=== PATIENT | male | born 1950 | race African-American/Black ===

== ENCOUNTER 2018-10-29 01:30 | Inpatient (IN) | payer MEDICARE, MEDICAID ==
[2018-10-29 02:07] LABS: #Basophils 0.1 thou/uL (0.0-0.2); #Eosinphils 0.3 thou/uL (0.0-0.7); #Lymphocytes 2.2 thou/uL (1.20-3.40); #Monocytes 0.5 thou/uL (0.11-0.59); #Neutrophils 6.1 thou/uL (1.40-6.50); %Basophils 1.2 % (0.0-1.0); %Eosinophils 3.5 % (0.0-10.0); %Lymphocytes 23.6 % (21.0-51.0); %Monocytes 5.4 % (0.0-10.0); %Neutrophils 66.3 % (42.0-75.0); Hemoglobin 13.6 g/dL (14.0-18.0); Mean Corpuscular HGB CONC 32.7 g/dL (32.0-36.0); Mean Corpuscular Hemoglobin 31.8 pg (27.0-31.0); Mean Corpuscular Volume 97.4 fL (78.0-98.0); Mean Platelet Volume 7.4 fL (7.4-10.4); Platelet Count 233 thou/uL (130-400); RBC Distribution Width 12.9 % (11.5-14.5); Red Blood Cell (RBC) Count 4.26 mill/uL (4.70-6.10); White Blood Cell (WBC) Count 9.2 thou/uL (4.8-10.8)
[2018-10-29] MEDS ORDERED: Mag-Al 1200 mg/1200 mg/30 ML UDCUP ONE (02:15)
[2018-10-29] MEDS ORDERED: Lidocaine Viscous Sol 2% 15 ml UD Cup ONE (02:15)
[2018-10-29 02:28] LABS: ALT (SGPT) 13 U/L (8-55); AST (SGOT) 15 U/L (5-34); Albumin 3.5 g/dL (3.4-4.8); Alkaline Phosphatase 68 U/L (40-150); Anion Gap 13 mmol/L (10-20); BUN (Urea Nitrogen) 8 mg/dL (8.4-25.7); Bilirubin, Total 0.7 mg/dL (0.2-1.2); CK (CPK) 155 U/L (30-200); Calc. Creatinine Clearance 0 mL/min (70-130); Calcium 8.7 mg/dL (7.8-10.44); Carbon Dioxide 24 mmol/L (23-31); Chloride 106 mmol/L (98-107); Estimated GFR-MDRD Greater than 90; Glucose 103 mg/dL (80-115); Lipase 13 U/L (8-78); Protein, Total 6.5 g/dL (5.8-8.1); Sodium 139 mmol/L (136-145)
[2018-10-29] MEDS ORDERED: Nitroglycerin 2% Ointment 1 INCH/1 GM Packet ONE (02:46)
[2018-10-29 02:49] LABS: CKMB 4.7 ng/mL (0-6.6)
[2018-10-29] MEDS ORDERED: Nitroglycerin 0.4 MG TAB 1 EACH ONE (03:47)
[2018-10-29] MEDS ORDERED: Enoxaparin Sodium 100 MG/ML SYRINGE ONE (03:53)
[2018-10-29] MEDS: Nitroglycerin 0.4 MG TAB (25 Tab Bottle) SL PRN ×3 (04:50→05:08)
[2018-10-29 05:30] LABS: Troponin I 0.267 ng/mL (< 0.028)
[2018-10-29] MEDS ORDERED: Morphine 4 MG/ML VIAL SLOW IVP PRN (05:32)
[2018-10-29 05:59] VITALS: BMI 34.9
--- NOTE | 2018-10-29 08:22 | RAD ---
AP CHEST: History: Chest pain Date: 10-29-18 FINDINGS: AP view chest demonstrates old healed fractures involving the left 7th rib. Old healed right 8th, 9th , and 10th rib fractures also seen. No evidence of acute bony lesions seen. IMPRESSION: 1. Unremarkable acute intrathoracic abnormalities seen. 2. Bilateral healed rib fractures seen. POS: [facility]
[2018-10-29 08:51] LABS: Troponin I 0.343 ng/mL (< 0.028)
[2018-10-29] MEDS ORDERED: Acetaminophen 325 MG TAB PO PRN (08:52)
[2018-10-29] MEDS ORDERED: Ondansetron PF 4 MG/2 ML Vial IVP PRN (08:52)
[2018-10-29] MEDS ORDERED: Ondansetron ODT 4 MG TAB PO PRN (08:52)
[2018-10-29] MEDS ORDERED: Enoxaparin Sodium 40 MG/0.4 ML SYRINGE SC SCH (09:00)
[2018-10-29] MEDS: Losartan/Hydrochlorothiazide 100 mg/25 mg Tablet PO SCH (11:00)
[2018-10-29] MEDS: Aspirin 325 MG TAB PO SCH (11:00)
--- NOTE | 2018-10-29 11:21 | CON ---
DATE OF CONSULTATION: 10/29/2018 REASON FOR CONSULTATION: Non-STEMI. HISTORY OF PRESENT ILLNESS: Mr. Fuller is a very pleasant 67-year-old gentleman, who comes to the hospital for chest pain. He had a sudden onset yesterday of chest tightness and burning, radiated to the left arm. It started about 2 days ago, but it got really bad yesterday, and so EMS was called. He received nitroglycerin en route and was brought in for further evaluation. He states that he had stopped his medications 2 days ago. He currently is chest pain free. His troponins were trended and he is positive now for non-STEMI, so Cardiology is being consulted for this. PAST MEDICAL HISTORY: 1. Hypertension. 2. Hyperlipidemia. PAST SURGICAL HISTORY: None. SOCIAL HISTORY: Smokes about a third of a pack a day. Drinks 6-pack a week and probably a little more on the weekends. No drug use. FAMILY HISTORY: No early coronary artery disease. OUTPATIENT MEDICATIONS: Include: 1. Losartan/hydrochlorothiazide 100/12.5 mg a day. 2. Lovastatin 10 mg a day. 3. Meloxicam 15 mg daily p.r.n. pain. ALLERGIES: NO KNOWN DRUG ALLERGIES. REVIEW OF SYSTEMS: A 12-point review of systems was done and it was all negative unless stated in the history of present illness. PHYSICAL EXAMINATION: VITAL SIGNS: Temperature 98.5, pulse 77, respiratory rate 18, saturation 97% on room air, and blood pressure 127/77. GENERAL: Awake, alert, and oriented x3, in no distress. HEENT: Normocephalic and atraumatic. NECK: Supple. LUNGS: Clear. CARDIOVASCULAR: S1 and S2. No S3 or S4. No murmurs. ABDOMEN: Soft. Positive bowel sounds. EXTREMITIES: No edema. SKIN: Warm and dry. LABORATORY DATA: Laboratory work was reviewed. CBC with white count of 9.2, hemoglobin of 13.6, hematocrit 41, platelet count of 233. Chemistries were unremarkable. GFR is greater than 90. Troponin was 0.23, 0.26, and then 0.34 positive range. CK-MB was 4.7, albumin was 3.5. IMAGING STUDIES: 1. EKG was reviewed. No nonspecific changes. 2. Chest x-ray unremarkable with bilateral healed rib fractures. ASSESSMENT AND PLAN: 1. [id number] myocardial infarction. 2. Hypertension. 3. Tobacco use. PLAN: We will plan on further risk stratification with heart catheterization. We spoke at length with risks and benefits of the procedure. Risks including, but not limited to stroke, [place], , bleeding, need for blood transfusion, limb loss, organ loss. The patient understands and verbalized understanding of this and agrees to proceed. We spoke about bare-metal stenting versus drug-eluting stenting and the need for anticoagulation given his alcohol use. I think bare-metal stenting is probably the best way to go. Further recommendations per results of coronary angiogram. Job ID: [id number]
[2018-10-29] MEDS ORDERED: Fentanyl 100 MCG/2 ML VIAL ONE (12:46)
[2018-10-29] MEDS ORDERED: Midazolam HCl 2 mg/2 ml Vial ONE (12:46)
[2018-10-29] MEDS ORDERED: Iopamidol 370 76% 50 ML VIAL FS ONE (15:07)
[2018-10-29] MEDS ORDERED: Iopamidol 370 76% 100 ML VIAL ONE (15:07)
[2018-10-29] MEDS: Carvedilol 3.125 MG TAB PO SCH (16:02)
[2018-10-29] MEDS ORDERED: Non-Formulary Item 1 EACH (Lovastatin 20 MG) PO SCH (17:00)
[2018-10-29] MEDS ORDERED: Simvastatin 5 MG TAB PO SCH (21:00)
[2018-10-29] MEDS: Enoxaparin Sodium 100 MG/ML SYRINGE SC SCH (21:36)
--- NOTE | 2018-10-30 03:08 | HP ---
CHIEF COMPLAINT: Chest pain. HISTORY OF PRESENT ILLNESS: This is a 67-year-old gentleman with past medical history significant for hypertension, many years of tobacco usage and alcohol, who presented here with left-sided chest pain described as an elephant sitting on the chest, 10/10 in terms of severity, associated with subjective feeling of shortness of breath. No diaphoresis and no palpitation. No known relieving or aggravating factors. The patient presented here and noted with slight elevation in troponin. Decision has now been taken to admit this patient for further workup. PAST MEDICAL HISTORY: Significant for hypertension, BPH, many years of tobacco abuse, dyslipidemia, and alcohol consumption. SOCIAL HISTORY: One pack a day for many years and significant alcohol usage. No illicit drugs. FAMILY HISTORY: No family history of cardiac disease. MEDICATIONS: Reviewed and as documented on [employer]. ALLERGIES: NO KNOWN DRUG ALLERGIES. REVIEW OF SYSTEMS: As documented in the body of history. All other systems were reviewed and found not to be significantly related to the present illness. PHYSICAL EXAMINATION: GENERAL: The patient was found not to be in any obvious distress. VITAL SIGNS: Noted with the following vital signs; afebrile, temperature 98.5, pulse 81, respiratory rate of 19, O2 saturations 96% with blood pressure 164/81. HEENT: Unremarkable. Moist oral mucosa. NECK: Supple. No conjunctival injection or icterus. CARDIOVASCULAR SYSTEM: First and second heart sounds were heard. RESPIRATORY SYSTEM: Clear to auscultation. DIGESTIVE SYSTEM: Revealed a benign abdomen with positive bowel sounds. EXTREMITIES: No peripheral edema. SKIN: No new gross rash. LYMPHATICS: No peripheral lymphadenopathy. IMPRESSION: 1. Chest pain, likely non-ST elevation myocardial infarction. 2. Hypertension. 3. Dyslipidemia. 4. Tobacco abuse and alcohol abuse. PLAN: 1. Cardiology consultation. 2. Counseled on the need to discontinue tobacco abuse and also alcohol. 3. The patient is to remain n.p.o. pending cardiology evaluation as this story sounds very typical of non-ST elevation [place]. 4. Further management will be dependent on the clinical course as well as further recommendations from Cardiology Service. The code status is full. Job ID: [id number]
[2018-10-30 06:52] LABS: Cardiac Risk 6.6 (Less than 4.5)
[2018-10-30] MEDS ORDERED: Bisacodyl 5 MG TAB PO PRN (08:09)
[2018-10-30] MEDS ORDERED: Diabetic Tussin 200 MG/10 ML UDCUP PO PRN (08:09)
[2018-10-30] MEDS ORDERED: Sodium Chloride 0.65% Nasal 44 ML BOT EA NARE PRN (08:09)
[2018-10-30] MEDS ORDERED: Senokot S 8.6-50 MG TAB PO PRN (08:09)
[2018-10-30] MEDS ORDERED: Eucerin (Mineral Oil/Petrolatum,White) 30 gm Jar TOP PRN (08:09)
[2018-10-30] MEDS ORDERED: Artificial Tears 18 DROP/0.9 ML EA EYE PRN (08:09)
[2018-10-30] MEDS ORDERED: Loperamide HCl 2 MG CAP PO PRN (08:09)
[2018-10-30] MEDS ORDERED: Cepastat Lozenges 1 LOZ PO PRN (08:09)
[2018-10-30] MEDS ORDERED: HYDROcodone/Acetaminophen 5/325 mg Tablet PO PRN (08:09)
[2018-10-30] MEDS ORDERED: hydrALAZINE 20 MG/ML VIAL SLOW IVP PRN (08:09)
[2018-10-30] MEDS ORDERED: Loratadine 10 MG TAB PO PRN (08:09)
[2018-10-30] MEDS ORDERED: Zolpidem Tartrate 5 MG TAB PO PRN (08:09)
--- NOTE | 2018-10-30 10:43 | PDOC.PN ---
- Subjective Encounter Start Date: 10/30/18 Encounter Start Time: 08:15 -: old records requested/rev Patient seen and examined. No new complaints. No overnight events today he has no chest pain - Objective Resuscitation Status - Order Detail: 10/29/18 08:52 Resuscitation Status Routine Resuscitation Status: FULL: Full Resuscitation MAR Reviewed: Yes Vital Signs & Weight: Vital Signs (12 hours) Temp Pulse Resp BP Pulse Ox 10/30/18 08:00 99.4 F 76 18 162/90 H 97 10/30/18 04:01 98 F 96 18 134/94 H 95 10/30/18 00:40 98.1 F 74 18 166/96 H 96 10/30/18 00:00 98.3 F 74 19 159/99 H 98 Weight Weight 236 lb 4.8 oz I&O: 10/29/18 10/30/18 10/31/18 06:59 06:59 06:59 Intake Total 200 807 Output Total 200 1750 Balance 0 -943 Result Diagrams: 10/29/18 02:00 10/29/18 02:00 Radiology Reviewed by me: Yes (chest xray reviewed) EKG Reviewed by me: Yes (nsr) Phys Exam - Physical Examination Constitutional: NAD HEENT: PERRLA, moist MMs, sclera anicteric Neck: no JVD, supple Respiratory: no wheezing, no rales, no rhonchi Cardiovascular: RRR, no significant murmur, no rub Gastrointestinal: soft, non-tender, no distention, positive bowel sounds Musculoskeletal: no edema, pulses present Neurological: non-focal, normal sensation, moves all 4 limbs Lymphatic: no nodes Psychiatric: normal affect, A&O x 3 Skin: no rash, normal turgor Dx/Plan (1) NSTEMI (non-ST elevated myocardial infarction) Code(s): I21.4 - NON-ST ELEVATION (NSTEMI) MYOCARDIAL INFARCTION Status: Acute (2) 3-vessel coronary artery disease Status: Acute (3) Dyslipidemia Code(s): E78.5 - HYPERLIPIDEMIA, UNSPECIFIED Status: Chronic (4) Hypertension Code(s): I10 - ESSENTIAL (PRIMARY) HYPERTENSION Status: Chronic (5) Obesity (BMI 30.0-34.9) Code(s): E66.9 - OBESITY, UNSPECIFIED Status: Chronic - Plan cont current plan of care * will change to lipitor 80 mg po daily * cardiology to decide about medical therapy vs cabg * medication reviewed as below * symptomatic treatment * continue cardiac rehab. * increase dose of coreg Review of Systems - Review of Systems ENT: negative: Ear Pain, Ear Discharge, Nose Pain, Nose Discharge, Nose Congestion, Mouth Pain, Mouth Swelling, Throat Pain, Throat Swelling, Other Respiratory: negative: Cough, Dry, Shortness of Breath, Hemoptysis, SOB with Excertion, Pleuritic Pain, Sputum, Wheezing Cardiovascular: negative: chest pain, palpitations, orthopnea, paroxysmal nocturnal dyspnea, edema, light headedness, other Gastrointestinal: negative: Nausea, Vomiting, Abdominal Pain, Diarrhea, Constipation, Melena, Hematochezia, Other Genitourinary: negative: Dysuria, Frequency, Incontinence, Hematuria, Retention , Other Musculoskeletal: negative: Neck Pain, Shoulder Pain, Arm Pain, Back Pain, Hand Pain, Leg Pain, Foot Pain, Other Skin: negative: Rash, Lesions, [place], Bruising, Other - Medications/Allergies Allergies/Adverse Reactions: Allergies Allergy/AdvReac Type Severity Reaction Status Date / Time No Known Allergies Allergy Verified 10/29/18 06:12 Medications: Current Medications Acetaminophen (Tylenol) 650 mg PO Q4H PRN PRN Reason: Headache/Fever/Mild Pain (1-3) Hydrocodone Bitart/Acetaminophen ([place] 5/325) 1 tab PO Q4H PRN PRN Reason: Moderate Pain (4-6) Artificial Tears (Tears Naturale) 2 drop EA EYE PRN PRN PRN Reason: Dry Eyes Aspirin (Aspirin) 325 mg PO DAILY [facility] Last Admin: 10/29/18 11:00 Dose: 325 mg Atorvastatin Calcium (Lipitor) 80 mg PO HS [facility] Bisacodyl (Dulcolax) 10 mg PO DAILYPRN PRN PRN Reason: Constipation Carvedilol (Coreg) 3.125 mg PO BID-WM [facility] Last Admin: 10/29/18 16:02 Dose: 3.125 mg Enoxaparin Sodium (Lovenox) 100 mg SC 0900,2100 [facility] Last Admin: 10/29/18 21:36 Dose: 100 mg Guaifenesin (Robitussin Sf) 200 mg PO Q4H PRN PRN Reason: Cough HCTZ/Losartan Potassium (Hyzaar 100/25) 1 tab PO DAILY [facility] Last Admin: 10/29/18 11:00 Dose: Not Given Hydralazine HCl (Apresoline) 10 mg SLOW IVP Q4H PRN PRN Reason: SBP > 180 and HR < 70 Loperamide HCl (Imodium) 2 mg PO PRN PRN PRN Reason: Diarrhea/Loose Stools Loratadine (Claritin) 10 mg PO DAILYPRN PRN PRN Reason: Sinus Symptoms Mineral Oil/White Petrolatum (Eucerin Cream) 0 gm TOP BIDPRN PRN PRN Reason: Dry Skin Nitroglycerin (Nitrostat) 0.4 mg SL Q5MIN PRN PRN Reason: Chest Pain Last Admin: 10/29/18 05:08 Dose: 0.4 mg Ondansetron HCl (Zofran Odt) 4 mg PO Q6H PRN PRN Reason: Nausea/Vomiting Ondansetron HCl (Zofran) 4 mg IVP Q6H PRN PRN Reason: Nausea/Vomiting Senna/Docusate Sodium (Senokot S) 2 tab PO BID PRN PRN Reason: Constipation Sodium Chloride (Flush - Normal Saline) 10 ml IVF Q12HR [facility] Last Admin: 10/29/18 21:37 Dose: 10 ml Sodium Chloride (Flush - Normal Saline) 10 ml IVF PRN PRN PRN Reason: Saline Flush Sodium Chloride ([place] Nasal [place] 0.65%) 0 ml EA NARE QIDPRN PRN PRN Reason: Nasal Congestion Throat Lozenges (Cepastat Lozenges) 1 raiza PO Q2H PRN PRN Reason: Sore Throat Zolpidem Tartrate (Ambien) 5 mg PO HSPRN PRN PRN Reason: Insomnia
[2018-10-30] MEDS: Enoxaparin Sodium 100 MG/ML SYRINGE SC SCH ×2 (11:02→20:58)
[2018-10-30] MEDS: Aspirin 325 MG TAB PO SCH (11:02)
[2018-10-30] MEDS: Carvedilol 3.125 MG TAB PO SCH (11:02)
--- NOTE | 2018-10-30 13:02 | PDOC.CTH ---
Cardiology Progress Note - Subjective No new issues. No chest pain. - Objective Vital Signs Temp Pulse Resp BP Pulse Ox 10/30/18 08:00 99.4 F 76 18 162/90 H 97 10/30/18 04:01 98 F 96 18 134/94 H 95 Weight 236 lb 4.8 oz 10/29/18 10/30/18 10/31/18 06:59 06:59 06:59 Intake Total 200 807 Output Total 200 1750 Balance 0 -943 - Physical Examination General/Neuro: alert & oriented x3, NAD Neck: no JVD present Lungs: unlabored respirations Heart: RRR Abdomen: NT/ND Extremities: + edema B - Telemetry Telemetry Rhythm: NSR - Labs Result Diagrams: 10/29/18 02:00 10/29/18 02:00 Troponin/CKMB CK-MB (CK-2) 4.7 ng/mL (0-6.6) 10/29/18 02:00 Troponin I 0.343 ng/mL (< 0.028) H* 10/29/18 08:14 - Assessment/Plan 1. NSTEMI 2. Multivessel CAD PLAN: - Discussed case with several of my partners and we all agree that CABG would be the best way to revascularize. - Will consult CT surgery.
[2018-10-30] MEDS: Losartan/Hydrochlorothiazide 100 mg/25 mg Tablet PO SCH (13:12)
[2018-10-30] MEDS: Carvedilol 6.25 MG TAB PO SCH (17:57)
[2018-10-30] MEDS: Atorvastatin Calcium 40 MG TAB PO SCH (20:58)
--- NOTE | 2018-10-31 00:13 | CON ---
DATE OF CONSULTATION: 10/30/2018 REQUESTING PHYSICIAN: Dr. Freire. PRIMARY CARE PHYSICIAN: Dr. Mike Jade. CHIEF COMPLAINT: Chest heaviness. HISTORY OF PRESENT ILLNESS: The patient is a 67-year-old man who will turn 68 shortly. He is a rather difficult historian who tends to ramble incomplete somethings. It is a bit of a challenge to keep him on point. For at least a day or two or three prior to his admission in the manufacturing executive hours yesterday, he had been having left-sided chest pain that he described as feeling like an animal sitting on his chest. It was going into his left arm. It was very difficult for me to get a clear picture of what finally prompted him to seek medical attention or to shake him from his version of the story that this has been going on for about a week nonstop. Other examiners apparently got a picture of this going on for just a few days. His initial troponin here was mildly elevated at 0.231. He is now pain free and has had uncomplicated post infarction course. PAST MEDICAL HISTORY: Significant for a prostate cancer, hypertension, and arthritis primarily involving his right knee. He describes initiating the process to be treated for his prostate cancer about 4 years ago, but poorly-controlled hypertension put that on hold and that has not been addressed since. 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 He describes smoking about a pack of cigarettes every 3 days and drinking about a case of beer a week. To the best of his knowledge, . no first degree relatives have any sort of heart problems. MEDICATIONS: His home medications are Mobic, lovastatin, and losartan/hydrochlorothiazide. He is currently on Lipitor 80 mg at bedtime in lieu of the lovastatin 20 mg, Coreg 12.5 mg b.i.d. has been added to his losartan 100 and hydrochlorothiazide 25 a day. An adult aspirin a day has been added and he is currently on 100 mg q.12 hours of subcu Lovenox. ALLERGIES: HE DENIES ANY MEDICAL ALLERGIES. REVIEW OF SYSTEMS: Positive for right knee arthritic symptoms. He denies any shortness of breath or cough. He denies any eye, speech, facial, or extremity symptoms to suggest TIAs. PHYSICAL EXAMINATION: GENERAL: He has white hair and duval, making him look older than perhaps his stated age. VITAL SIGNS: His height is 5 feet 10 inches, weight is 243.5 pounds. Heart rate is 80, blood pressure is 144/72, temperature is 97.5, room air O2 sats 96%. HEENT: He has no xanthelasma. No JVD. No carotid bruits. CHEST: Clear to auscultation. CARDIAC: He has a regular rate and rhythm without obvious murmur or gallop. When I asked him blow out hard against my hand, he seemed to have some slightly decreased force of exhalation. EXTREMITIES: He has easily palpable radial pulses. His posterior tibials were palpable. I was not able to appreciate dorsalis pedis pulses. His right knee seems a little bit larger than his left. It is difficult to appreciate saphenous vein in his leg. NEUROLOGIC: Grossly nonfocal. LABORATORY DATA: Showed white count 9.2, hemoglobin 13.6, hematocrit 41.5, platelets 233,000. Electrolytes were normal. Glucose 103, BUN 8, creatinine 0.85, calcium is 8.7, albumin 6.5. LFTs were normal. Triglycerides 137, cholesterol 211, HDL 152, and HDL 32. His troponin at 2 o'clock yesterday morning was 0.231, at quarter to five was 0.267, at 8:15 it was 0.343. His EKG has a rather deep Q in 3 and R-waves in V5 and V6 are smaller than they are another precordial leads. Otherwise, it is fairly unremarkable EKG. His chest x-ray shows a slightly ectatic aorta with fairly clear lung chacon and no overt cardiomegaly. His cardiac catheterization shows a right-dominant system. He has about a 40% mid right lesion and then a 60% to 70% right coronary lesion just beyond the acute marginal. His left main is normal. He has either a high diagonal or ramus type vessel with a 60% to 80% lesion in it, but a 60% to 70% LAD lesion just beyond the first septal refrigeration installer. He has some luminal irregularity with what appears to be about 50% or 60% lesion in an OM2 that is a very large vessel. The groove circumflex has a high-grade lesion in it, but it is a small vessel and bypassable obtuse marginals emerged from the groove beyond that large first one. LVEF by my estimation is around 40, perhaps as much as 50% inferoapical area of hypokinesis. Dr. Freire estimated the EF to be about 60%. LV pressures were 163/10 with an EDP of 26 and 178/9 with an EDP of 25. Aortic pressure on pullback from the 178/9 reading was 165/88 with a mean of 119. IMPRESSION AND PLAN: Three-vessel coronary artery disease with recent myocardial infarction. I think surgical revascularization is a reasonable approach can be done with low risk. The patient was essentially aghast at my offer of doing bypass surgery tomorrow when he began trying to explain various things about coordinating plans to get his surgery scheduled at first. It sounded like it was a combination of the shock of being told about the surgery and the possibility of doing it on such short notice and desire to not be in the hospital on his birthday. We talked about various issues about postop recovery and help that he is apt to need during his convalescence and I could not really get a clear picture of when he would like to do this, other than, it is clear he does not want to do it in the morning. Job ID: [id number]
[2018-10-31] MEDS: Carvedilol 6.25 MG TAB PO SCH ×2 (08:27→18:12)
[2018-10-31] MEDS: Losartan/Hydrochlorothiazide 100 mg/25 mg Tablet PO SCH (08:28)
[2018-10-31] MEDS: Enoxaparin Sodium 100 MG/ML SYRINGE SC SCH ×2 (08:30→21:02)
[2018-10-31] MEDS: Aspirin 325 MG TAB PO SCH (08:30)
--- NOTE | 2018-10-31 12:38 | PDOC.PN ---
- Subjective Encounter Start Date: 10/31/18 Encounter Start Time: 09:30 Patient seen and examined. No new complaints. No overnight events - Objective Resuscitation Status - Order Detail: 10/29/18 08:52 Resuscitation Status Routine Resuscitation Status: FULL: Full Resuscitation MAR Reviewed: Yes Vital Signs & Weight: Vital Signs (12 hours) Temp Pulse Resp BP BP Pulse Ox 10/31/18 08:27 143/87 H 10/31/18 07:23 97.5 F L 77 18 142/78 H 97 10/31/18 03:12 98.2 F 85 16 134/75 96 Weight Weight 234 lb I&O: 10/30/18 10/31/18 11/01/18 06:59 06:59 06:59 Intake Total 807 1230 240 Output Total 1750 400 Balance -943 830 240 Result Diagrams: 10/29/18 02:00 10/29/18 02:00 EKG Reviewed by me: Yes (nsr) Phys Exam - Physical Examination Constitutional: NAD HEENT: PERRLA, moist MMs, sclera anicteric Neck: no JVD, supple Respiratory: no wheezing, no rales, no rhonchi Cardiovascular: RRR, no significant murmur, no rub Gastrointestinal: soft, non-tender, no distention, positive bowel sounds Musculoskeletal: no edema, pulses present Neurological: non-focal, normal sensation, moves all 4 limbs Lymphatic: no nodes Psychiatric: normal affect, A&O x 3 Skin: no rash, normal turgor Dx/Plan (1) NSTEMI (non-ST elevated myocardial infarction) Code(s): I21.4 - NON-ST ELEVATION (NSTEMI) MYOCARDIAL INFARCTION Status: Acute (2) 3-vessel coronary artery disease Status: Acute (3) Dyslipidemia Code(s): E78.5 - HYPERLIPIDEMIA, UNSPECIFIED Status: Chronic (4) Hypertension Code(s): I10 - ESSENTIAL (PRIMARY) HYPERTENSION Status: Chronic (5) Obesity (BMI 30.0-34.9) Code(s): E66.9 - OBESITY, UNSPECIFIED Status: Chronic - Plan cont current plan of care * medication reviewed as below * symptomatic treatment * pt has decided about cabg * overall stable * will monitor. Review of Systems - Review of Systems ENT: negative: Ear Pain, Ear Discharge, Nose Pain, Nose Discharge, Nose Congestion, Mouth Pain, Mouth Swelling, Throat Pain, Throat Swelling, Other Respiratory: negative: Cough, Dry, Shortness of Breath, Hemoptysis, SOB with Excertion, Pleuritic Pain, Sputum, Wheezing Cardiovascular: negative: chest pain, palpitations, orthopnea, paroxysmal nocturnal dyspnea, edema, light headedness, other Gastrointestinal: negative: Nausea, Vomiting, Abdominal Pain, Diarrhea, Constipation, Melena, Hematochezia, Other Genitourinary: negative: Dysuria, Frequency, Incontinence, Hematuria, Retention , Other Musculoskeletal: negative: Neck Pain, Shoulder Pain, Arm Pain, Back Pain, Hand Pain, Leg Pain, Foot Pain, Other - Medications/Allergies Allergies/Adverse Reactions: Allergies Allergy/AdvReac Type Severity Reaction Status Date / Time No Known Allergies Allergy Verified 10/29/18 06:12 Medications: Current Medications Acetaminophen (Tylenol) 650 mg PO Q4H PRN PRN Reason: Headache/Fever/Mild Pain (1-3) Hydrocodone Bitart/Acetaminophen ([place] 5/325) 1 tab PO Q4H PRN PRN Reason: Moderate Pain (4-6) Artificial Tears (Tears Naturale) 2 drop EA EYE PRN PRN PRN Reason: Dry Eyes Aspirin (Aspirin) 325 mg PO DAILY [facility] Last Admin: 10/31/18 08:30 Dose: 325 mg Atorvastatin Calcium (Lipitor) 80 mg PO HS [facility] Last Admin: 10/30/18 20:58 Dose: 80 mg Bisacodyl (Dulcolax) 10 mg PO DAILYPRN PRN PRN Reason: Constipation Carvedilol (Coreg) 12.5 mg PO BID-WM [facility] Last Admin: 10/31/18 08:27 Dose: 12.5 mg Enoxaparin Sodium (Lovenox) 100 mg SC 0900,2100 [facility] Last Admin: 10/31/18 08:30 Dose: 100 mg Guaifenesin (Robitussin Sf) 200 mg PO Q4H PRN PRN Reason: Cough HCTZ/Losartan Potassium (Hyzaar 100/25) 1 tab PO DAILY [facility] Last Admin: 10/31/18 08:28 Dose: 1 tab Hydralazine HCl (Apresoline) 10 mg SLOW IVP Q4H PRN PRN Reason: SBP > 180 and HR < 70 Loperamide HCl (Imodium) 2 mg PO PRN PRN PRN Reason: Diarrhea/Loose Stools Loratadine (Claritin) 10 mg PO DAILYPRN PRN PRN Reason: Sinus Symptoms Mineral Oil/White Petrolatum (Eucerin Cream) 0 gm TOP BIDPRN PRN PRN Reason: Dry Skin Nitroglycerin (Nitrostat) 0.4 mg SL Q5MIN PRN PRN Reason: Chest Pain Last Admin: 10/29/18 05:08 Dose: 0.4 mg Ondansetron HCl (Zofran Odt) 4 mg PO Q6H PRN PRN Reason: Nausea/Vomiting Ondansetron HCl (Zofran) 4 mg IVP Q6H PRN PRN Reason: Nausea/Vomiting Senna/Docusate Sodium (Senokot S) 2 tab PO BID PRN PRN Reason: Constipation Sodium Chloride (Flush - Normal Saline) 10 ml IVF Q12HR [facility] Last Admin: 10/31/18 08:33 Dose: 10 ml Sodium Chloride (Flush - Normal Saline) 10 ml IVF PRN PRN PRN Reason: Saline Flush Sodium Chloride ([place] Nasal [place] 0.65%) 0 ml EA NARE QIDPRN PRN PRN Reason: Nasal Congestion Throat Lozenges (Cepastat Lozenges) 1 raiza PO Q2H PRN PRN Reason: Sore Throat Zolpidem Tartrate (Ambien) 5 mg PO HSPRN PRN PRN Reason: Insomnia
--- NOTE | 2018-10-31 18:00 | PDOC.CTH ---
Cardiology Progress Note - Subjective He has thought about CABG and has decided to proceed. No chest pain. - Objective Vital Signs Temp Pulse Resp BP BP Pulse Ox 10/31/18 12:58 97.8 F 77 135/80 97 10/31/18 08:27 143/87 H 10/31/18 07:23 97.5 F L 77 18 142/78 H 97 Weight 234 lb 10/30/18 10/31/18 11/01/18 06:59 06:59 06:59 Intake Total 807 1230 240 Output Total 1750 400 Balance -943 830 240 - Physical Examination General/Neuro: alert & oriented x3, NAD Neck: no JVD present Lungs: CTA, unlabored respirations Heart: RRR Abdomen: NT/ND Extremities: other: (no edema.) - Telemetry Telemetry Rhythm: NSR - Labs Result Diagrams: 10/29/18 02:00 10/29/18 02:00 Troponin/CKMB CK-MB (CK-2) 4.7 ng/mL (0-6.6) 10/29/18 02:00 Troponin I 0.343 ng/mL (< 0.028) H* 10/29/18 08:14 - Assessment/Plan 1. NSTEMI 2. Multivessel CAD PLAN: - CABG tomorrow. - Will follow.
[2018-10-31] MEDS: Atorvastatin Calcium 40 MG TAB PO SCH (21:02)
[2018-10-31] MEDS ORDERED: Famotidine 20 MG TAB PO SCH (22:00)
[2018-10-31 22:04] LABS: ALT (SGPT) 15 U/L (8-55); AST (SGOT) 14 U/L (5-34); Albumin 4.2 g/dL (3.4-4.8); Alkaline Phosphatase 69 U/L (40-150); Anion Gap 10 mmol/L (10-20); BUN (Urea Nitrogen) 12 mg/dL (8.4-25.7); Bilirubin, Total 0.6 mg/dL (0.2-1.2); Calc. Creatinine Clearance 105 mL/min (70-130); Calcium 10.1 mg/dL (7.8-10.44); Carbon Dioxide 31 mmol/L (23-31); Chloride 99 mmol/L (98-107); Estimated GFR-MDRD 86; Globulin 3.5 g/dL (2.4-3.5); Glucose 103 mg/dL (80-115); Magnesium 2.1 mg/dL (1.6-2.6); Potassium 3.9 mmol/L (3.5-5.1); Protein, Total 7.7 g/dL (5.8-8.1); Sodium 136 mmol/L (136-145)
--- NOTE | 2018-11-01 08:28 | PDOC.CTH ---
Cardiology Progress Note - Subjective No chest pain, no new issues. - Objective Vital Signs Temp Pulse Resp BP Pulse Ox 11/01/18 05:55 97.7 F 73 18 121/71 100 10/31/18 21:02 95 10/31/18 20:54 97.6 F 77 18 111/77 95 Weight 232 lb 6.4 oz 10/31/18 11/01/18 11/02/18 06:59 06:59 06:59 Intake Total 1230 1180 Output Total 400 575 Balance 830 605 - Physical Examination General/Neuro: alert & oriented x3, NAD Neck: no JVD present Lungs: CTA, unlabored respirations Heart: RRR Abdomen: NT/ND Extremities: other: (no edema) - Telemetry Telemetry Rhythm: NSR - Labs Result Diagrams: 10/29/18 02:00 10/31/18 21:37 Troponin/CKMB CK-MB (CK-2) 4.7 ng/mL (0-6.6) 10/29/18 02:00 Troponin I 0.343 ng/mL (< 0.028) H* 10/29/18 08:14 - Assessment/Plan 1. NSTEMI 2. Multivessel CAD 3. HTN PLAN: - CABG when scheduled. - Continue medical therapy.
[2018-11-01] MEDS ORDERED: Famotidine 20 MG TAB PO SCH (09:00)
[2018-11-01] MEDS: Carvedilol 6.25 MG TAB PO SCH (10:22)
[2018-11-01] MEDS: Enoxaparin Sodium 100 MG/ML SYRINGE SC SCH (10:22)
[2018-11-01] MEDS: Aspirin 325 MG TAB PO SCH (10:23)
[2018-11-01] MEDS: Losartan/Hydrochlorothiazide 100 mg/25 mg Tablet PO SCH (11:10)
--- NOTE | 2018-11-01 12:09 | PDOC.PN ---
- Subjective Encounter Start Date: 11/01/18 Encounter Start Time: 08:00 Patient seen and examined. No new complaints. No overnight events - Objective Resuscitation Status - Order Detail: 10/29/18 08:52 Resuscitation Status Routine Resuscitation Status: FULL: Full Resuscitation MAR Reviewed: Yes Vital Signs & Weight: Vital Signs (12 hours) Temp Pulse Resp BP BP BP Pulse Ox 11/01/18 10:22 143/87 H 11/01/18 08:00 97.7 F 83 18 126/79 100 11/01/18 05:55 97.7 F 73 18 121/71 100 Weight Weight 232 lb 6.4 oz I&O: 10/31/18 11/01/18 11/02/18 06:59 06:59 06:59 Intake Total 1230 1180 Output Total 400 575 Balance 830 605 Result Diagrams: 10/29/18 02:00 10/31/18 21:37 EKG Reviewed by me: Yes (nsr) Phys Exam - Physical Examination Constitutional: NAD HEENT: PERRLA, moist MMs, sclera anicteric Neck: no JVD, supple Respiratory: no wheezing, no rales, no rhonchi Cardiovascular: RRR, no significant murmur, no rub Gastrointestinal: soft, non-tender, no distention, positive bowel sounds Musculoskeletal: no edema, pulses present Neurological: non-focal, normal sensation Psychiatric: normal affect, A&O x 3 Skin: no rash, normal turgor Dx/Plan (1) NSTEMI (non-ST elevated myocardial infarction) Code(s): I21.4 - NON-ST ELEVATION (NSTEMI) MYOCARDIAL INFARCTION Status: Acute (2) 3-vessel coronary artery disease Status: Acute (3) Dyslipidemia Code(s): E78.5 - HYPERLIPIDEMIA, UNSPECIFIED Status: Chronic (4) Hypertension Code(s): I10 - ESSENTIAL (PRIMARY) HYPERTENSION Status: Chronic (5) Obesity (BMI 30.0-34.9) Code(s): E66.9 - OBESITY, UNSPECIFIED Status: Chronic - Plan cont current plan of care * cabg outpt * ok to dc as per cv surgery and cardiology * see discharge summery * medication reviewed as below * symptomatic treatment. Review of Systems - Review of Systems ENT: negative: Ear Pain, Ear Discharge, Nose Pain, Nose Discharge, Nose Congestion, Mouth Pain, Mouth Swelling, Throat Pain, Throat Swelling, Other Respiratory: negative: Cough, Dry, Shortness of Breath, Hemoptysis, SOB with Excertion, Pleuritic Pain, Sputum, Wheezing Cardiovascular: negative: chest pain, palpitations, orthopnea, paroxysmal nocturnal dyspnea, edema, light headedness, other Gastrointestinal: negative: Nausea, Vomiting, Abdominal Pain, Diarrhea, Constipation, Melena, Hematochezia, Other Genitourinary: negative: Dysuria, Frequency, Incontinence, Hematuria, Retention , Other Musculoskeletal: negative: Neck Pain, Shoulder Pain, Arm Pain, Back Pain, Hand Pain, Leg Pain, Foot Pain, Other Skin: negative: Rash, Lesions, Tanmay, Bruising, Other - Medications/Allergies Allergies/Adverse Reactions: Allergies Allergy/AdvReac Type Severity Reaction Status Date / Time No Known Allergies Allergy Verified 10/29/18 06:12 Medications: Current Medications Acetaminophen (Tylenol) 650 mg PO Q4H PRN PRN Reason: Headache/Fever/Mild Pain (1-3) Hydrocodone Bitart/Acetaminophen ([place] 5/325) 1 tab PO Q4H PRN PRN Reason: Moderate Pain (4-6) Artificial Tears (Tears Naturale) 2 drop EA EYE PRN PRN PRN Reason: Dry Eyes Aspirin (Aspirin) 325 mg PO DAILY [facility] Last Admin: 11/01/18 10:23 Dose: 325 mg Atorvastatin Calcium (Lipitor) 80 mg PO HS [facility] Last Admin: 10/31/18 21:02 Dose: 80 mg Bisacodyl (Dulcolax) 10 mg PO DAILYPRN PRN PRN Reason: Constipation Carvedilol (Coreg) 12.5 mg PO BID[facility] Last Admin: 11/01/18 10:22 Dose: 12.5 mg Enoxaparin Sodium (Lovenox) 100 mg SC 0900,2100 [facility] Last Admin: 11/01/18 10:22 Dose: 100 mg Famotidine (Pepcid) 20 mg PO BID [facility] Last Admin: 11/01/18 10:23 Dose: 20 mg Guaifenesin (Robitussin Sf) 200 mg PO Q4H PRN PRN Reason: Cough HCTZ/Losartan Potassium (Hyzaar 100/25) 1 tab PO DAILY [facility] Last Admin: 11/01/18 11:10 Dose: 1 tab Hydralazine HCl (Apresoline) 10 mg SLOW IVP Q4H PRN PRN Reason: SBP > 180 and HR < 70 Loperamide HCl (Imodium) 2 mg PO PRN PRN PRN Reason: Diarrhea/Loose Stools Loratadine (Claritin) 10 mg PO DAILYPRN PRN PRN Reason: Sinus Symptoms Mineral Oil/White Petrolatum (Eucerin Cream) 0 gm TOP BIDPRN PRN PRN Reason: Dry Skin Nitroglycerin (Nitrostat) 0.4 mg SL Q5MIN PRN PRN Reason: Chest Pain Last Admin: 10/29/18 05:08 Dose: 0.4 mg Ondansetron HCl (Zofran Odt) 4 mg PO Q6H PRN PRN Reason: Nausea/Vomiting Ondansetron HCl (Zofran) 4 mg IVP Q6H PRN PRN Reason: Nausea/Vomiting Senna/Docusate Sodium (Senokot S) 2 tab PO BID PRN PRN Reason: Constipation Sodium Chloride (Flush - Normal Saline) 10 ml IVF Q12HR JG Last Admin: 11/01/18 10:23 Dose: 10 ml Sodium Chloride (Flush - Normal Saline) 10 ml IVF PRN PRN PRN Reason: Saline Flush Sodium Chloride ([place] Nasal [place] 0.65%) 0 ml EA NARE QIDPRN PRN PRN Reason: Nasal Congestion Throat Lozenges (Cepastat Lozenges) 1 raiza PO Q2H PRN PRN Reason: Sore Throat Zolpidem Tartrate (Ambien) 5 mg PO HSPRN PRN PRN Reason: Insomnia
[2018-11-01 12:22] VITALS: BP 141/88; TEMP 97.9
--- NOTE | 2018-11-01 13:14 | DIS ---
DATE OF ADMISSION: 10/29/2018 DATE OF DISCHARGE: 11/01/2018 PRIMARY CARE PHYSICIAN: Dr. Mike Jade. DISCHARGE DISPOSITION: Home. PRIMARY DISCHARGE DIAGNOSES: [id number] myocardial infarction and three-vessel coronary artery disease. SECONDARY DISCHARGE DIAGNOSES: Obesity with BMI 33, hypertension, and dyslipidemia. PRIMARY PROCEDURES/OPERATIONS: Cardiac catheterization was performed by Dr. Freire and found with severe LCX disease, severe proximal LAD disease, severe D1 ostial disease, and [id number] mid RCA disease. Chest x-ray was unremarkable. LABORATORY DATA: Significant labs; WBC 9.2, hemoglobin 13.6, and platelets 233. Sodium 136, potassium 3.9, BUN 12, and creatinine 1.05. LFT normal. Troponin 0.343. LDL 152. DISCHARGE MEDICATIONS: 1. Aspirin 325 mg p.o. daily. 2. Lipitor 80 mg p.o. at bedtime. 3. Coreg 12.5 mg twice daily. 4. Losartan with hydrochlorothiazide 100/25 one tablet daily. CONTRAINDICATION: None. CODE STATUS: Full code. INPATIENT CONSULTANTS: Dr. Freire was following while in the hospital. Dr. Schaeffer was consulted for CABG. TEST RESULT PENDING ON DISCHARGE: None. ALLERGIES: NO KNOWN DRUG ALLERGIES. DISCHARGE PLAN: Posthospital, the patient has an appointment with Dr. Freier on November 08, 2018, at 3:30 p.m. The patient will follow up with Dr. Schaeffer on November 08, 2018, at 2 p.m. The patient will make appointment with primary care physician as well as cardiac rehab. HOSPITAL COURSE: A 67-year-old male with above-mentioned medical problem, who was admitted by Dr. Kunz, please see his H and P for further details. The patient was having typical anginal pain. He had significantly elevated troponin. His troponin increased in non STEMI range. He was admitted for non STEMI to the telemetry floor. Cardiology was consulted. Cardiology did cardiac cath and the patient was found with severe three-vessel coronary artery disease. Cardiology recommended medical therapy as well as CABG. Dr. Schaeffer evaluated this patient while in the hospital. This patient was not able to make his mind to go for a CABG and that is why CABG was not done during this admission. Cardiology and cardiovascular surgeon are recommending elective admission for CABG after discharge. All new medication prescription sent to his pharmacy. The patient is medically stable. Cardiology cleared him for discharge and cardiovascular surgeon also cleared him for discharge. Job ID: [id number]
--- NOTE | 2018-11-03 23:17 | EKG ---
Test Reason : Blood Pressure : / mmHG Vent. Rate : 081 BPM Atrial Rate : 081 BPM P-R Int : 172 ms QRS Dur : 084 ms QT Int : 392 ms P-R-T Axes : 056 -25 036 degrees QTc Int : 455 ms Normal sinus rhythm Nonspecific T wave abnormality Abnormal ECG Confirmed by SILVIANO MARIA ([id number]), photographic editor BELKIS CARSON ([id number] on 11/03/2018 11:17:25 PM Referred By: Confirmed By:SILVIANO MARIA
--- NOTE | 2018-11-03 23:24 | EKG ---
Test Reason : Blood Pressure : / mmHG Vent. Rate : 074 BPM Atrial Rate : 074 BPM P-R Int : 166 ms QRS Dur : 076 ms QT Int : 402 ms P-R-T Axes : 026 -21 025 degrees QTc Int : 446 ms Normal sinus rhythm Normal ECG No changes from 29-OCT-2018 0155 Confirmed by SILVIANO MARIA ([id number]), editorial clerk BELKIS CARSON ([id number] on 11/03/2018 11:23:59 PM Referred By: Confirmed By:SILVIANO MARIA
== END 2018-11-01 13:15 | disposition home or self-care (01) | DRG 282 ==
LOC: ERS 01:30 → 2SE 02:36 → OBSVTOIN 12:00 → 2NO 10-30 00:41
PROVIDERS: ADMIT Hospitalist; ATTEND Hospitalist
PROC: 4A023N7 Measurement of Cardiac Sampling and Pressure, Left Heart, Percutaneous Approach (ICD-10-PCS; principal; 2018-10-29)
PROC: B2111ZZ Fluoroscopy of Multiple Coronary Arteries using Low Osmolar Contrast (ICD-10-PCS; 2018-10-29)
PROC: B2151ZZ Fluoroscopy of Left Heart using Low Osmolar Contrast (ICD-10-PCS; 2018-10-29)
DX: I21.4 Non-ST elevation (NSTEMI) myocardial infarction (principal); I25.10 Atherosclerotic heart disease of native coronary artery without angina pectoris; E66.9 Obesity, unspecified; Z68.33 Body mass index [BMI] 33.0-33.9, adult; I10 Essential (primary) hypertension; E78.5 Hyperlipidemia, unspecified; N40.0 Benign prostatic hyperplasia without lower urinary tract symptoms; F17.210 Nicotine dependence, cigarettes, uncomplicated; F10.10 Alcohol abuse, uncomplicated; Z85.46 Personal history of malignant neoplasm of prostate; Z79.899 Other long term (current) drug therapy
CPT/HCPCS: 36415; 71045; 80053; 80061; 82550; 82553; 83690; 83735; 84484; 85025; 93005; 93010; 93458; 99152; 99153; C1769; J1644; J1650; J2250; J3010; Q9967

== ENCOUNTER 2022-05-02 17:16 | Inpatient (IN) | payer OTHER ==
[2022-05-02 18:33] LABS: #Basophils 0.1 thou/uL (0.0-0.2); #Eosinphils 0.4 thou/uL (0.0-0.7); #Lymphocytes 2.1 thou/uL (1.20-3.40); #Monocytes 0.7 thou/uL (0.11-0.59); #Neutrophils 6.4 thou/uL (1.40-6.50); %Basophils 0.6 % (0.0-1.0); %Eosinophils 3.8 % (0.0-10.0); %Lymphocytes 21.9 % (21.0-51.0); %Monocytes 7.4 % (0.0-10.0); %Neutrophils 66.4 % (42.0-75.0); Mean Corpuscular HGB CONC 31.8 g/dL (32.0-36.0); Mean Corpuscular Hemoglobin 31.4 pg (27.0-31.0); Mean Corpuscular Volume 98.8 fL (78.0-98.0); Mean Platelet Volume 7.3 fL (7.4-10.4); Platelet Count 251 thou/uL (130-400); RBC Distribution Width 12.8 % (11.5-14.5); Red Blood Cell (RBC) Count 4.14 mill/uL (4.70-6.10); White Blood Cell (WBC) Count 9.6 thou/uL (4.8-10.8)
[2022-05-02 18:54] LABS: ALT (SGPT) 10 U/L (8-55); AST (SGOT) 12 U/L (5-34); Albumin 3.5 g/dL (3.4-4.8); Alkaline Phosphatase 56 U/L (40-110); Anion Gap 13 mmol/L (10-20); BUN (Urea Nitrogen) 41 mg/dL (8.4-25.7); Calc. Creatinine Clearance 0 mL/min (70-130); Calcium 8.6 mg/dL (7.8-10.44); Carbon Dioxide 24 mmol/L (23-31); Chloride 102 mmol/L (98-107); Estimated GFR 19; Globulin 2.7 g/dL (2.4-3.5); Glucose 96 mg/dL (80-115); Potassium 3.9 mmol/L (3.5-5.1); Protein, Total 6.2 g/dL (5.8-8.1); Sodium 135 mmol/L (136-145)
[2022-05-02 19:44] LABS: Acetaminophen Less than 10.0 mcg/mL (10.0-30.0); Alcohol Less than 10 mg/dL (Less than 10); Salicylate Less than 8.0 mg/dL (15.0-30.0)
[2022-05-02] MEDS ORDERED: Nitroglycerin 0.4 MG TAB (25 Tab Bottle) SL PRN (21:41)
[2022-05-02] MEDS ORDERED: Senokot S 8.6-50 MG TAB PO PRN (21:41)
[2022-05-02] MEDS ORDERED: Ondansetron PF 4 MG/2 ML Vial IVP PRN (21:41)
[2022-05-02] MEDS ORDERED: Acetaminophen 325 MG TAB PO PRN (21:41)
[2022-05-02] MEDS ORDERED: Morphine 2 MG/ML VIAL SLOW IVP PRN (21:52)
[2022-05-02] MEDS ORDERED: Pantoprazole 40 MG VIAL IVP SCH (22:00)
[2022-05-02] MEDS ORDERED: Morphine 2 MG/ML VIAL ONE (22:14)
[2022-05-02 23:32] LABS: Troponin I 0.015 ng/mL (< 0.028)
[2022-05-02 23:40] VITALS: BMI 36.5
[2022-05-03] MEDS: Heparin 5,000 UNITS/ML VIAL SC SCH ×3 (00:09→21:47)
[2022-05-03] MEDS: Nicotine 21 MG PATCH TD SCH ×2 (00:09→21:47)
[2022-05-03] MEDS: Sodium Chloride 0.9% 1,000 ML IV SCH ×2 (00:10→16:38)
[2022-05-03 04:53] LABS: #Basophils 0.1 thou/uL (0.0-0.2); #Eosinphils 0.6 thou/uL (0.0-0.7); #Lymphocytes 2.5 thou/uL (1.20-3.40); #Monocytes 0.8 thou/uL (0.11-0.59); #Neutrophils 6.1 thou/uL (1.40-6.50); %Eosinophils 5.5 % (0.0-10.0); %Monocytes 8.1 % (0.0-10.0); %Neutrophils 60.4 % (42.0-75.0); Hemoglobin 13.8 g/dL (14.0-18.0); Mean Corpuscular HGB CONC 33.4 g/dL (32.0-36.0); Mean Corpuscular Hemoglobin 32.9 pg (27.0-31.0); Mean Corpuscular Volume 98.4 fL (78.0-98.0); Mean Platelet Volume 7.5 fL (7.4-10.4); Platelet Count 254 thou/uL (130-400); RBC Distribution Width 12.7 % (11.5-14.5); Red Blood Cell (RBC) Count 4.19 mill/uL (4.70-6.10); White Blood Cell (WBC) Count 10.1 thou/uL (4.8-10.8)
[2022-05-03 05:15] LABS: ALT (SGPT) 10 U/L (8-55); AST (SGOT) 14 U/L (5-34); Albumin 3.8 g/dL (3.4-4.8); Alkaline Phosphatase 67 U/L (40-110); Anion Gap 14 mmol/L (10-20); BUN (Urea Nitrogen) 40 mg/dL (8.4-25.7); Bilirubin, Total 0.5 mg/dL (0.2-1.2); Calc. Creatinine Clearance 50 mL/min (70-130); Calcium 9.2 mg/dL (7.8-10.44); Carbon Dioxide 22 mmol/L (23-31); Cardiac Risk 8.5 (Less than 4.5); Chloride 105 mmol/L (98-107); Cholesterol 170 mg/dl (< 200 Desired); Estimated GFR 30; Globulin 3.5 g/dL (2.4-3.5); Glucose 116 mg/dL (80-115); HDL Cholesterol 20 mg/dL (>60 Neg Risk); LDL Cholesterol, Calculated 102 mg/dL; Potassium 3.5 mmol/L (3.5-5.1); Protein, Total 7.3 g/dL (5.8-8.1); Sodium 137 mmol/L (136-145); Triglycerides 240 mg/dL (Less than 150)
[2022-05-03] MEDS: Aspirin Chewable 81 MG TAB PO SCH (15:27)
[2022-05-03] MEDS: Gabapentin 100 MG CAP PO SCH (15:28)
[2022-05-03] MEDS: Pantoprazole 40 MG VIAL IVP SCH (15:29)
[2022-05-03] MEDS: Clopidogrel Bisulfate 75 MG TAB PO SCH (15:29)
[2022-05-03] MEDS ORDERED: Atorvastatin Calcium 40 MG TAB PO SCH (21:00)
[2022-05-04 05:03] LABS: Anion Gap 14 mmol/L (10-20); BUN (Urea Nitrogen) 27 mg/dL (8.4-25.7); Calc. Creatinine Clearance 83 mL/min (70-130); Calcium 9.7 mg/dL (7.8-10.44); Carbon Dioxide 26 mmol/L (23-31); Chloride 104 mmol/L (98-107); Estimated GFR 56; Glucose 98 mg/dL (80-115); Potassium 3.7 mmol/L (3.5-5.1); Sodium 140 mmol/L (136-145)
[2022-05-04] MEDS: Aspirin Chewable 81 MG TAB PO SCH (08:24)
[2022-05-04] MEDS: Gabapentin 100 MG CAP PO SCH (08:24)
[2022-05-04] MEDS: Heparin 5,000 UNITS/ML VIAL SC SCH (08:25)
[2022-05-04] MEDS: Clopidogrel Bisulfate 75 MG TAB PO SCH (08:25)
[2022-05-04] MEDS: Pantoprazole 40 MG VIAL IVP SCH (08:25)
[2022-05-04 08:43] VITALS: BP 164/83; TEMP 97.5
== END 2022-05-04 10:50 | disposition home or self-care (01) | DRG 303 ==
LOC: ERS 17:16 → 2NO 21:10
PROVIDERS: ADMIT Internal Medicine; ATTEND Internal Medicine
DX: I25.118 Atherosclerotic heart disease of native coronary artery with other forms of angina pectoris (principal); N17.9 Acute kidney failure, unspecified; I50.22 Chronic systolic (congestive) heart failure; I95.9 Hypotension, unspecified; Z20.822 Contact with and (suspected) exposure to COVID-19; E86.1 Hypovolemia; E78.5 Hyperlipidemia, unspecified; G89.29 Other chronic pain; Z60.2 Problems related to living alone; F17.210 Nicotine dependence, cigarettes, uncomplicated; E86.0 Dehydration; E78.1 Pure hyperglyceridemia; R07.89 Other chest pain; I11.0 Hypertensive heart disease with heart failure; I25.5 Ischemic cardiomyopathy; M54.9 Dorsalgia, unspecified; Z79.899 Other long term (current) drug therapy; Z79.82 Long term (current) use of aspirin; I25.2 Old myocardial infarction; Z80.0 Family history of malignant neoplasm of digestive organs; Z79.02 Long term (current) use of antithrombotics/antiplatelets
CPT/HCPCS: 36415; 71045; 80048; 80053; 80061; 80307; 83880; 84443; 84484; 85025; 93005; 93306; 96361; 96374; C9113; J1644; J2270; J7050; U0003; U0005

== ENCOUNTER 2022-12-10 17:17 | Inpatient (IN) | payer OTHER ==
[2022-12-10 17:51] LABS: Bilirubin Negative (Negative); Blood, Urine Negative (Negative); Clarity Turbid (Clear); Glucose, Urine (Dipstick) Normal (Negative); Ketone, Urine Trace mg/dL (Negative); Leukocyte Negative Leu/uL (Negative); Nitrite Negative (Negative); Protein, Urine (Dipstick) 20 mg/dL (Neg-Trace); Specific Gravity, Urine 1.019 (1.002-1.036)
[2022-12-10] MEDS ORDERED: Fentanyl 100 MCG/2 ML VIAL ONE (17:52)
[2022-12-10 17:59] LABS: Amphetamine Not Detected (NotDetected); Barbiturates Screen Not Detected (NotDetected); Benzodiazepine Screen Not Detected (NotDetected); Cocaine Metabolite Screen Detected (NotDetected); Methadone Not Detected (NotDetected); Methamphetamine Not Detected (NotDetected); Opiate Screen Not Detected (NotDetected); Oxycodone Screen Not Detected (NotDetected); Phencyclidine (PCP) Not Detected (NotDetected); THC/Cannabinoid Screen Not Detected (NotDetected); Tricyclic Screen Not Detected (NotDetected)
[2022-12-10 18:21] LABS: #Basophils 0.1 thou/uL (0.0-0.2); #Eosinphils 0.1 thou/uL (0.0-0.7); #Lymphocytes 1.3 thou/uL (1.20-3.40); #Monocytes 0.6 thou/uL (0.11-0.59); #Neutrophils 9.9 thou/uL (1.40-6.50); %Basophils 0.7 % (0.0-1.0); %Eosinophils 0.7 % (0.0-10.0); %Monocytes 4.6 % (0.0-10.0); Hemoglobin 11.5 g/dL (14.0-18.0); Mean Corpuscular Hemoglobin 32.1 pg (27.0-31.0); Mean Corpuscular Volume 97.2 fl (78.0-98.0); Mean Platelet Volume 7.2 fL (7.4-10.4); Platelet Count 270 10x3/uL (130-400); RBC Distribution Width 12.9 % (11.5-14.5); Red Blood Cell (RBC) Count 3.59 mill/uL (4.70-6.10)
[2022-12-10 18:42] LABS: CK (CPK) 104 U/L (30-200); Lipase 19 U/L (8-78)
[2022-12-10 18:44] LABS: ALT (SGPT) 12 U/L (8-55); AST (SGOT) 16 U/L (5-34); Acetaminophen Less than 10.0 mcg/mL (10.0-30.0); Albumin 3.1 g/dL (3.4-4.8); Alcohol Less than 10 mg/dL (Less than 10); Alkaline Phosphatase 70 U/L (40-110); Anion Gap 13 mmol/L (10-20); BUN (Urea Nitrogen) 18 mg/dL (8.4-25.7); Bilirubin, Total 0.7 mg/dL (0.2-1.2); Calc. Creatinine Clearance 0 mL/min (70-130); Calcium 8.1 mg/dL (7.8-10.44); Carbon Dioxide 18 mmol/L (23-31); Chloride 106 mmol/L (98-107); Estimated GFR 64; Globulin 2.6 g/dL (2.4-3.5); Glucose 155 mg/dL (80-115); Potassium 3.9 mmol/L (3.5-5.1); Protein, Total 5.7 g/dL (5.8-8.1); Salicylate Less than 8.0 mg/dL (15.0-30.0); Sodium 133 mmol/L (136-145)
[2022-12-10 19:06] LABS: CKMB 3.6 ng/mL (0-6.6)
[2022-12-10] MEDS ORDERED: Pantoprazole 40 MG VIAL ONE (19:13)
[2022-12-10] MEDS ORDERED: Thiamine HCl 200 MG/2 ML VIAL SLOW IVP SCH (19:30)
[2022-12-10] MEDS ORDERED: Acetaminophen 650 MG Suppository PR PRN (20:10)
[2022-12-10] MEDS ORDERED: Acetaminophen 325 MG TAB PO PRN (20:10)
[2022-12-10] MEDS ORDERED: Ondansetron ODT 4 MG TAB PO PRN (20:10)
[2022-12-10] MEDS ORDERED: Ondansetron PF 4 MG/2 ML Vial IVP PRN (20:10)
[2022-12-10] MEDS ORDERED: Nitroglycerin 0.4 MG TAB (25 Tab Bottle) SL PRN (20:10)
[2022-12-10 21:25] LABS: Troponin I 0.299 ng/mL (< 0.028)
[2022-12-10 22:15] VITALS: BMI 39.2
[2022-12-10] MEDS: Morphine 4 MG/ML VIAL SLOW IVP PRN (22:23)
[2022-12-11 05:01] LABS: #Basophils 0.1 thou/uL (0.0-0.2); #Eosinphils 0.2 thou/uL (0.0-0.7); #Lymphocytes 2.5 thou/uL (1.20-3.40); #Monocytes 0.8 thou/uL (0.11-0.59); %Basophils 0.8 % (0.0-1.0); %Eosinophils 1.9 % (0.0-10.0); %Lymphocytes 19.9 % (21.0-51.0); %Neutrophils 71.4 % (42.0-75.0); Hemoglobin 12.2 g/dL (14.0-18.0); Mean Corpuscular HGB CONC 33.5 g/dL (32.0-36.0); Mean Corpuscular Hemoglobin 32.7 pg (27.0-31.0); Mean Corpuscular Volume 97.6 fl (78.0-98.0); Mean Platelet Volume 7.5 fL (7.4-10.4); Platelet Count 275 10x3/uL (130-400); RBC Distribution Width 12.9 % (11.5-14.5); Red Blood Cell (RBC) Count 3.74 mill/uL (4.70-6.10); White Blood Cell (WBC) Count 12.6 10x3/uL (4.8-10.8)
[2022-12-11 05:22] LABS: Anion Gap 7 mmol/L (10-20); BUN (Urea Nitrogen) 14 mg/dL (8.4-25.7); Calc. Creatinine Clearance 135 mL/min (70-130); Calcium 8.2 mg/dL (7.8-10.44); Carbon Dioxide 22 mmol/L (23-31); Chloride 110 mmol/L (98-107); Estimated GFR 92; Glucose 107 mg/dL (80-115); Magnesium 1.8 mg/dL (1.6-2.6); Potassium 3.5 mmol/L (3.5-5.1); Sodium 135 mmol/L (136-145)
[2022-12-11] MEDS: Morphine 4 MG/ML VIAL SLOW IVP PRN (06:19)
[2022-12-11] MEDS ORDERED: Spironolactone 25 MG TAB PO SCH (09:15)
[2022-12-11] MEDS ORDERED: Losartan 25 MG TAB PO SCH ×2 (09:15→16:15)
[2022-12-11] MEDS ORDERED: Carvedilol 25 MG TAB PO SCH ×3 (09:15→21:00)
[2022-12-11] MEDS: Aspirin Chewable 81 MG TAB PO SCH (10:11)
[2022-12-11] MEDS: Enoxaparin 120 MG/0.8 ML SYRINGE SC SCH ×2 (10:11→21:23)
[2022-12-11] MEDS ORDERED: hydrALAZINE 20 MG/ML VIAL SLOW IVP PRN (16:16)
[2022-12-11] MEDS ORDERED: Amlodipine 10 MG TAB PO SCH (17:30)
[2022-12-11] MEDS ORDERED: Non-Formulary Item 1 EACH (Atorvastatin Calcium [Lipitor] 80 MG Tablet) PO SCH (21:00)
[2022-12-11] MEDS ORDERED: Atorvastatin Calcium 40 MG TAB PO SCH (21:00)
[2022-12-12 04:51] LABS: #Basophils 0.1 thou/uL (0.0-0.2); #Eosinphils 0.3 thou/uL (0.0-0.7); #Lymphocytes 3.1 thou/uL (1.20-3.40); #Monocytes 0.8 thou/uL (0.11-0.59); #Neutrophils 7.7 thou/uL (1.40-6.50); %Basophils 0.9 % (0.0-1.0); %Eosinophils 2.3 % (0.0-10.0); %Lymphocytes 25.8 % (21.0-51.0); %Monocytes 6.5 % (0.0-10.0); %Neutrophils 64.6 % (42.0-75.0); Hemoglobin 13.2 g/dL (14.0-18.0); Mean Corpuscular HGB CONC 32.4 g/dL (32.0-36.0); Mean Corpuscular Hemoglobin 31.7 pg (27.0-31.0); Mean Corpuscular Volume 97.8 fl (78.0-98.0); Mean Platelet Volume 7.8 fL (7.4-10.4); Platelet Count 279 10x3/uL (130-400); RBC Distribution Width 12.9 % (11.5-14.5); Red Blood Cell (RBC) Count 4.16 mill/uL (4.70-6.10); White Blood Cell (WBC) Count 11.9 10x3/uL (4.8-10.8)
[2022-12-12 05:11] LABS: Anion Gap 13 mmol/L (10-20); BUN (Urea Nitrogen) 9 mg/dL (8.4-25.7); Calc. Creatinine Clearance 140 mL/min (70-130); Calcium 8.8 mg/dL (7.8-10.44); Carbon Dioxide 21 mmol/L (23-31); Chloride 107 mmol/L (98-107); Estimated GFR 95; Glucose 90 mg/dL (80-115); Magnesium 1.6 mg/dL (1.6-2.6); Potassium 3.7 mmol/L (3.5-5.1); Sodium 137 mmol/L (136-145)
[2022-12-12] MEDS ORDERED: Carvedilol 25 MG TAB PO SCH (08:00)
[2022-12-12] MEDS ORDERED: Spironolactone 25 MG TAB PO SCH (09:00)
[2022-12-12] MEDS ORDERED: Amlodipine 10 MG TAB PO SCH (09:00)
[2022-12-12] MEDS ORDERED: Losartan 25 MG TAB PO SCH (09:00)
[2022-12-12] MEDS ORDERED: Gabapentin 100 MG CAP PO SCH (09:00)
[2022-12-12] MEDS: Aspirin Chewable 81 MG TAB PO SCH (09:14)
[2022-12-12] MEDS: Enoxaparin 120 MG/0.8 ML SYRINGE SC SCH (09:15)
[2022-12-12 11:37] VITALS: BP 125/74; TEMP 99
[2022-12-13] MEDS ORDERED: FLU VACC QS2022-23(65YR UP)/PF 240 MCG/0.7 ML SYRINGE IM ONE (09:00)
== END 2022-12-12 12:55 | disposition home or self-care (01) | DRG 917 ==
LOC: ERS 17:17 → 2NO 19:50
PROVIDERS: ADMIT Internal Medicine; ATTEND Internal Medicine
DX: T40.5X1A Poisoning by cocaine, accidental (unintentional), initial encounter (principal); I21.A1 Myocardial infarction type 2; I50.32 Chronic diastolic (congestive) heart failure; E87.1 Hypo-osmolality and hyponatremia; Z20.822 Contact with and (suspected) exposure to COVID-19; E78.5 Hyperlipidemia, unspecified; F17.210 Nicotine dependence, cigarettes, uncomplicated; F14.10 Cocaine abuse, uncomplicated; I25.10 Atherosclerotic heart disease of native coronary artery without angina pectoris; I11.0 Hypertensive heart disease with heart failure; I95.2 Hypotension due to drugs; T50.915A Adverse effect of multiple unspecified drugs, medicaments and biological substances, initial encounter; D72.829 Elevated white blood cell count, unspecified; T44.7X1A Poisoning by beta-adrenoreceptor antagonists, accidental (unintentional), initial encounter; F10.10 Alcohol abuse, uncomplicated; R29.6 Repeated falls; Z91.81 History of falling; Z79.02 Long term (current) use of antithrombotics/antiplatelets; Z79.1 Long term (current) use of non-steroidal anti-inflammatories (NSAID); I25.2 Old myocardial infarction; Z71.51 Drug abuse counseling and surveillance of drug abuser; Z79.899 Other long term (current) drug therapy
CPT/HCPCS: 36415; 36416; 70450; 71045; 80048; 80053; 80306; 80307; 81003; 82140; 82550; 82553; 83605; 83690; 83735; 83880; 84443; 84484; 85025; 87040; 93005; 93010; 93306; 94760; 96372; 96374; 96375; C9113; J0360; J1611; J1650; J2270; J3010; J3411; U0003; U0005

== ENCOUNTER 2025-08-28 17:40 | Emergency (ER) | payer MEDICARE, OTHER ==
[~2025-08-28 17:40] MED LIST: Iopamidol-370 76% 500 ML MDV (1 ML CHARGE) ONE
[2025-08-28 18:33] LABS: #Basophils 0.05 10x3/uL (0.0-0.2); #Eosinophils 0.18 10x3/uL (0.0-0.7); #Monocytes 0.76 10x3/uL (0.11-0.59); #Neutrophils 11.63 10x3/uL (1.40-6.50); %Basophils 0.4 % (0.0-1.0); %Eosinophils 1.3 % (0.0-10.0); %Lymphocytes 10.0 % (21.0-51.0); %Monocytes 5.4 % (0.0-10.0); %Neutrophils 82.6 % (42.0-75.0); Hematocrit 40.7 % (42.0-52.0); Hemoglobin 13.8 g/dL (14.0-18.0); Mean Corpuscular Hemoglobin 31.9 pg (27.0-31.0); Mean Corpuscular Volume 94.2 fL (78.0-98.0); Platelet Count 235 10x3/uL (130-400); Red Blood Cell (RBC) Count 4.32 mill/uL (4.70-6.10); White Blood Cell (WBC) Count 14.06 10x3/uL (4.8-10.8)
[2025-08-28 18:57] LABS: ALT (SGPT) 13 U/L (Less than 45); AST (SGOT) 18 U/L (11-34); Albumin 3.4 g/dL (3.1-4.5); Alkaline Phosphatase 66 U/L (40-110); Anion Gap 11 mmol/L (10-20); BUN (Urea Nitrogen) 16 mg/dL (8.4-25.7); Bilirubin, Total 0.6 mg/dL (0.3-1.2); Calc. Creatinine Clearance 0 mL/min (70-130); Calcium 8.7 mg/dL (7.8-10.44); Carbon Dioxide 24 mmol/L (23-31); Chloride 100 mmol/L (98-107); Globulin 3.1 g/dL (2.4-3.5); Glucose 99 mg/dL (83-110); Lipase 7 U/L (8-78); Potassium 4.0 mmol/L (3.5-5.1); Sodium 131 mmol/L (136-145)
== END 2025-08-28 22:23 | disposition home or self-care (01) ==
LOC: ERS 17:40
DX: K59.00 Constipation, unspecified (principal); I10 Essential (primary) hypertension; I25.2 Old myocardial infarction; F17.210 Nicotine dependence, cigarettes, uncomplicated; Z79.82 Long term (current) use of aspirin; Z79.899 Other long term (current) drug therapy
CPT/HCPCS: 74177; 80053; 83690; 85025; Q9967